=== PATIENT | female | born 1980 | race Two or more races ===

== ENCOUNTER 2018-07-12 14:37 | Outpatient (CLI) | payer MEDICAID ==
[2014-11-01 06:42] VITALS: BMI 37.4
[~2018-07-12 14:37] MED LIST: GLUCOPHAGE1000 MG PO; GLUCOPHAGE850 MG PO; IBUPROFEN600 MG PO; PERCOCET 10/3251 TA1 PO
[2018-07-13] MEDS ORDERED: HUMULIN R100 U/ML SQ (09:08)
[2018-07-13] MEDS ORDERED: HUMULIN N100 U/ML SC ×2 (09:08→09:10)
[2018-07-13] MEDS ORDERED: HUMULIN R100 U/ML SC ×2 (09:09)
[2018-07-15 13:30] LABS: PROTEIN - URINE 0.2 mg/dL (0.0-11.9)
== END 2018-07-13 09:40 | disposition home or self-care (01) ==
LOC: D.LDO 14:37 → D.LD 17:03 → D.LDO 07-13 09:40
PROVIDERS: ATTEND Obstetrics & Gynecology
DX: O24.112 Pre-existing type 2 diabetes mellitus, in pregnancy, second trimester (principal); E11.9 Type 2 diabetes mellitus without complications; Z3A.18 18 weeks gestation of pregnancy; O09.42 Supervision of pregnancy with grand multiparity, second trimester

== ENCOUNTER → 2018-08-02 13:15 | Outpatient (CLI) | payer MEDICAID ==
[2014-11-01 06:42] VITALS: BMI 37.4
[~2018-08-02 13:15] MED LIST changes: +HUMULIN N100 U/ML SC; +HUMULIN R100 U/ML SC; +HUMULIN R100 U/ML SQ
== END | disposition home or self-care (01) ==
LOC: D.US 12:45
PROVIDERS: ATTEND Obstetrics & Gynecology
DX: O24.919 Unspecified diabetes mellitus in pregnancy, unspecified trimester (principal); Z3A.00 Weeks of gestation of pregnancy not specified

== ENCOUNTER → 2018-10-04 09:45 | Outpatient (CLI) | payer MEDICAID ==
[2014-11-01 06:42] VITALS: BMI 37.4
== END | disposition home or self-care (01) ==
LOC: D.LDO 09:45
PROVIDERS: ATTEND Obstetrics & Gynecology
DX: O24.913 Unspecified diabetes mellitus in pregnancy, third trimester (principal); O09.529 Supervision of elderly multigravida, unspecified trimester; Z3A.30 30 weeks gestation of pregnancy

== ENCOUNTER → 2018-10-07 16:02 | Outpatient (CLI) | payer MEDICAID ==
[2014-11-01 06:42] VITALS: BMI 37.4
== END | disposition home or self-care (01) ==
LOC: D.LDO 16:02
PROVIDERS: ATTEND Obstetrics & Gynecology
DX: O24.913 Unspecified diabetes mellitus in pregnancy, third trimester (principal); Z3A.30 30 weeks gestation of pregnancy; Z79.4 Long term (current) use of insulin

== ENCOUNTER → 2018-10-11 13:10 | Outpatient (CLI) | payer MEDICAID ==
[2014-11-01 06:42] VITALS: BMI 37.4
[~2018-10-11 13:10] MED LIST changes: +CALCIUM 250+D T1 TAB PO; +FERROUS SULFAT325 MG PO; +HYDROCODON-ACE1 EA10 PO
== END | disposition home or self-care (01) ==
LOC: D.LDO 13:10
PROVIDERS: ATTEND Obstetrics & Gynecology
DX: O24.913 Unspecified diabetes mellitus in pregnancy, third trimester (principal); Z3A.31 31 weeks gestation of pregnancy; Z79.4 Long term (current) use of insulin

== ENCOUNTER → 2018-10-14 12:50 | Outpatient (CLI) | payer MEDICAID ==
[2014-11-01 06:42] VITALS: BMI 37.4
[~2018-10-14 12:50] MED LIST changes: -CALCIUM 250+D T1 TAB PO; -FERROUS SULFAT325 MG PO; -HYDROCODON-ACE1 EA10 PO
== END | disposition home or self-care (01) ==
LOC: D.LDO 12:50
PROVIDERS: ATTEND Obstetrics & Gynecology
DX: O24.913 Unspecified diabetes mellitus in pregnancy, third trimester (principal); Z3A.31 31 weeks gestation of pregnancy

== ENCOUNTER → 2018-10-19 18:13 | Outpatient (CLI) | payer MEDICAID ==
[2014-11-01 06:42] VITALS: BMI 37.4
== END | disposition home or self-care (01) ==
LOC: D.LDO 18:13
PROVIDERS: ATTEND Obstetrics & Gynecology
DX: O24.913 Unspecified diabetes mellitus in pregnancy, third trimester (principal); Z3A.32 32 weeks gestation of pregnancy

== ENCOUNTER → 2018-10-22 19:09 | Outpatient (CLI) | payer MEDICAID ==
[2014-11-01 06:42] VITALS: BMI 37.4
[~2018-10-22 19:09] MED LIST changes: +CALCIUM 250+D T1 TAB PO; +FERROUS SULFAT325 MG PO; +HYDROCODON-ACE1 EA10 PO
== END | disposition home or self-care (01) ==
LOC: D.LDO 19:09
PROVIDERS: ATTEND Obstetrics & Gynecology
DX: O13.3 Gestational [pregnancy-induced] hypertension without significant proteinuria, third trimester (principal); Z3A.32 32 weeks gestation of pregnancy

== ENCOUNTER → 2018-10-25 16:18 | Outpatient (CLI) | payer MEDICAID ==
[2014-11-01 06:42] VITALS: BMI 37.4
[~2018-10-25 16:18] MED LIST changes: -CALCIUM 250+D T1 TAB PO; -FERROUS SULFAT325 MG PO; -HYDROCODON-ACE1 EA10 PO
== END | disposition home or self-care (01) ==
LOC: D.LDO 16:18
PROVIDERS: ATTEND Obstetrics & Gynecology
DX: O24.913 Unspecified diabetes mellitus in pregnancy, third trimester (principal); Z3A.33 33 weeks gestation of pregnancy

== ENCOUNTER → 2018-10-28 13:01 | Outpatient (CLI) | payer MEDICAID ==
[2014-11-01 06:42] VITALS: BMI 37.4
== END | disposition home or self-care (01) ==
LOC: D.LDO 13:01
PROVIDERS: ATTEND Obstetrics & Gynecology
DX: O13.3 Gestational [pregnancy-induced] hypertension without significant proteinuria, third trimester (principal); Z3A.33 33 weeks gestation of pregnancy

== ENCOUNTER → 2018-11-01 15:54 | Outpatient (CLI) | payer MEDICAID ==
[2014-11-01 06:42] VITALS: BMI 37.4
== END | disposition home or self-care (01) ==
LOC: D.LDO 15:54
PROVIDERS: ATTEND Obstetrics & Gynecology
DX: O13.3 Gestational [pregnancy-induced] hypertension without significant proteinuria, third trimester (principal); Z3A.34 34 weeks gestation of pregnancy

== ENCOUNTER → 2018-11-04 13:46 | Outpatient (CLI) | payer MEDICAID ==
[2014-11-01 06:42] VITALS: BMI 37.4
== END | disposition home or self-care (01) ==
LOC: D.LDO 13:46
PROVIDERS: ATTEND Obstetrics & Gynecology
DX: O24.913 Unspecified diabetes mellitus in pregnancy, third trimester (principal); Z3A.34 34 weeks gestation of pregnancy

== ENCOUNTER → 2018-11-08 18:29 | Outpatient (CLI) | payer MEDICAID ==
[2014-11-01 06:42] VITALS: BMI 37.4
== END | disposition home or self-care (01) ==
LOC: D.LDO 18:29
PROVIDERS: ATTEND Obstetrics & Gynecology
DX: O24.913 Unspecified diabetes mellitus in pregnancy, third trimester (principal); Z3A.35 35 weeks gestation of pregnancy

== ENCOUNTER → 2018-11-11 20:49 | Outpatient (CLI) | payer MEDICAID ==
[2014-11-01 06:42] VITALS: BMI 37.4
== END | disposition home or self-care (01) ==
LOC: D.LDO 20:49
PROVIDERS: ATTEND Obstetrics & Gynecology
DX: O26.899 Other specified pregnancy related conditions, unspecified trimester (principal); Z3A.00 Weeks of gestation of pregnancy not specified

== ENCOUNTER → 2018-11-16 19:44 | Outpatient (CLI) | payer MEDICAID ==
[2014-11-01 06:42] VITALS: BMI 37.4
== END | disposition home or self-care (01) ==
LOC: D.LDO 19:44
PROVIDERS: ATTEND Obstetrics & Gynecology
DX: O24.913 Unspecified diabetes mellitus in pregnancy, third trimester (principal); Z3A.36 36 weeks gestation of pregnancy

== ENCOUNTER → 2018-11-19 14:43 | Outpatient (CLI) | payer MEDICAID ==
[2014-11-01 06:42] VITALS: BMI 37.4
== END | disposition home or self-care (01) ==
LOC: D.LDO 14:43
PROVIDERS: ATTEND Obstetrics & Gynecology
DX: O24.913 Unspecified diabetes mellitus in pregnancy, third trimester (principal); Z3A.35 35 weeks gestation of pregnancy

== ENCOUNTER → 2018-11-23 16:10 | Outpatient (CLI) | payer MEDICAID ==
[2014-11-01 06:42] VITALS: BMI 37.4
[~2018-11-23 16:10] MED LIST changes: +CALCIUM 250+D T1 TAB PO; +FERROUS SULFAT325 MG PO; +HYDROCODON-ACE1 EA10 PO
== END | disposition home or self-care (01) ==
LOC: D.LDO 16:10
PROVIDERS: ATTEND Obstetrics & Gynecology
DX: O24.913 Unspecified diabetes mellitus in pregnancy, third trimester (principal); Z3A.37 37 weeks gestation of pregnancy

== ENCOUNTER → 2018-11-26 12:40 | Outpatient (CLI) | payer MEDICAID ==
[2014-11-01 06:42] VITALS: BMI 37.4
== END | disposition home or self-care (01) ==
LOC: D.LDO 12:40
PROVIDERS: ATTEND Obstetrics & Gynecology
DX: O24.419 Gestational diabetes mellitus in pregnancy, unspecified control (principal)

== ENCOUNTER → 2018-11-30 16:39 | Outpatient (CLI) | payer MEDICAID ==
[2014-11-01 06:42] VITALS: BMI 37.4
== END | disposition home or self-care (01) ==
LOC: D.LDO 16:39
PROVIDERS: ATTEND Obstetrics & Gynecology
DX: O24.419 Gestational diabetes mellitus in pregnancy, unspecified control (principal)

== ENCOUNTER → 2018-12-03 14:16 | Outpatient (CLI) | payer MEDICAID ==
[2014-11-01 06:42] VITALS: BMI 37.4
== END | disposition home or self-care (01) ==
LOC: D.LDO 14:16
PROVIDERS: ATTEND Obstetrics & Gynecology
DX: O24.913 Unspecified diabetes mellitus in pregnancy, third trimester (principal); Z3A.38 38 weeks gestation of pregnancy

== ENCOUNTER 2018-12-06 10:03 | Inpatient (IN) | payer MEDICAID ==
[2018-12-06] VITALS (10 sets, daily range): BP systolic 133–165; BP diastolic 68–80; Ht 157.5 cm; Wt 101.2 kg
[~2018-12-06] VITALS: Ht 157.5 cm; Wt 101.2 kg
[~2018-12-06 10:03] MED LIST changes: -CALCIUM 250+D T1 TAB PO; -FERROUS SULFAT325 MG PO; -HYDROCODON-ACE1 EA10 PO
[2018-12-06] MEDS ORDERED: CALCIUM 250+D T1 TAB PO (10:54)
[2018-12-06] MEDS ORDERED: FERROUS SULFAT325 MG PO (10:54)
[2018-12-06 12:06] LABS: HEMATOCRIT 29.6 % (36.0-48.0); HEMOGLOBIN 9.8 g/dL (12-16); MCH 26.1 pg (26.0-34.0); MCHC 33.1 g/dL (31.0-37.0); MCV 78.7 fL (80.0-100.0); MEAN PLATELET VOLUME 11.8 fL (7.4-10.4); RBC 3.76 10x6/uL (4.00-5.40); RDW 14.4 % (11.5-14.5); WBC 7.2 10x3/uL (4.8-10.8)
[2018-12-06 14:33] LABS: APPEARANCE CLEAR (CLEAR); BILIRUBIN NEGATIVE (NEGATIVE); COLOR YELLOW (YELLOW); GLUCOSE NEGATIVE (NEGATIVE); KETONE NEGATIVE (NEGATIVE); NITRITE NEGATIVE (NEGATIVE); PROTEIN NEGATIVE (NEGATIVE); UROBILINOGEN NORMAL (NORMAL)
--- NOTE | 2018-12-06 16:14 | NUR ---
RECEIVED PT VIA BED FROM RR POST REPEAT C/S WITH BTL, PT TO ROOM 1276, VS INITIATED, SALINE LOCK IN RIGHT WRIST INTACT WITH NO REDNESS OR EDEMA, IV IN LEFT UPPER FA INTACT WITH NO REDNESS OR EDEMA INFUSING VIA PUMP NS WITH PITOCIN AT 125 ML/HR, FF, ML, U/1, LITE BLEEDING NOTED WITH NO CLOTS, SHANIA CARE DONE WITH WET WARM WASH CLOTH, SHANIA PAD CHANGED, BIKINI INC WITH SMALL DRESSING CDI WITH NO DRAIANGE NOTED, ICE PACK TO ABD, MERCADO CATH INTACT DRAINING DARK YELLOW URINE, SCD'S CONNECT TO PUMP AND WORKING PROPERLY, PT INST ON AND SERVED APPLE JUICE DUE TO BS OF 62, PT VERBALIZES UNDERSTANDING, INFORMED PT THAT I WILL START HER GAUNTLET PAIRER FOR PAIN MANAGEMENT, PT VERBALIZES UNDERSTANDING, BED IN LOW POSITION, SIDE RAILS X 2, CALL LIGHT IN REACH
--- NOTE | 2018-12-06 16:31 | NUR ---
DILAUDID BINMAN INITIATED, PT INST ON AND VERBALIZES UNDERSTANDING OF BINMAN, PT PUSHES BUTTON AT THIS TIME FOR PAIN OF 7/10
--- NOTE | 2018-12-06 16:50 | NUR ---
FF, ML, U/1, LITE BLEEDING NOTED WITH NO CLOTS
--- NOTE | 2018-12-06 17:30 | NUR ---
PT RESTING WITH EYES CLOSED, AROUSES TO SOFT VERBAL STIMULATION, VS CONTINUE, OBTAINED FSBS, FF, ML, U/1, LITE BLEEDING NOTED WITH NO CLOTS, SHANIA CARE DONE WITH WET WARM WASH CLOTHS, BLUE CHUX AND SHANIA PAD CHANGED, ICE PACK TO ABD, MERCADO CATH EMPTIED, SCD'S CONTINUE ON AND WORKING PROPERLY, PT RATES INC PAIN 5/10, DENIES NEEDS, DINNER TRAY REMOVED
--- NOTE | 2018-12-06 18:38 | NUR ---
PT HOLDING INFANT, RATES INC PAIN 10/11, DENIES NEEDS, FOB AT BEDSIDE
--- NOTE | 2018-12-06 19:00 | NUR ---
SHIFT REPORT TO DINAH WEN RN AND RAFAEL VEGA RN
--- NOTE | 2018-12-06 19:30 | NUR ---
CHRISTINA LOPEZ RN SPOKE TO DR WAGNER REGARDING BP, CHRISTINA LOPEZ RN REPORTS TO ME TO GO AHEAD AND ADM TORADOL, RETAKE BP IN 1 HOUR, AND IF BP STILL ELEVATED, DRAW [facility] LABS AND NOTIFY HIM
--- NOTE | 2018-12-06 19:43 | NUR ---
VS OBTAINED, ADM TORADOL SIVP PER MD ORDERS, SEE EMAR, LAB IN ROOM FOR BLOOD DRAW, SHANITA MICHEL, RN IN ROOM WITH , PT DENIES NEEDS AT THIS TIME
[2018-12-06 20:04] LABS: BASOPHILS 0.2 % (0-2); EOSINOPHILS 0.3 % (0-7); HEMOGLOBIN 11.6 g/dL (12-16); IMMATURE GRANULOCYTES 0.3 % (0-5); LYMPHOCYTES 15.8 % (15-50); MCH 26.2 pg (26.0-34.0); MCHC 33.1 g/dL (31.0-37.0); MCV 79.2 fL (80.0-100.0); MEAN PLATELET VOLUME 12.3 fL (7.4-10.4); MONOCYTES 6.4 % (2-11); PLATELET COUNT 155 10x3/uL (130-400); RBC 4.42 10x6/uL (4.00-5.40); RDW 14.3 % (11.5-14.5)
[2018-12-06 20:05] LABS: WBC 11.5 10x3/uL (4.8-10.8)
--- NOTE | 2018-12-06 20:16 | NUR ---
FSBS OBTAINED, PT INST TO DRINK APPLE JUICE, APPLE JUICE SERVED, PT DENIES FURTHER NEEDS, FAMILY MEMBER HOLDING INFANT, FOB AND FAMILY AT BEDSIDE
--- NOTE | 2018-12-06 20:39 | NUR ---
REPORT TO BALBIR SHEIKH RN
--- NOTE | 2018-12-06 20:40 | NUR ---
BEDSIDE REPORT PROVIDED, NO IMMEDIATE NEEDS VOICED AT THIS TIME, PT SMILING WITH MULTIPLE FAMILY/FRIENDS IN ROOM, DENIES PAIN. CALL LIGHT AND DESKTOP PUBLISHING SPECIALIST BUTTON WITHIN EASY REACH. WILL MONITOR.
--- NOTE | 2018-12-06 21:15 | NUR ---
SHIFT ASSESSMENT COMPLETED, VSS, PT SMILING AND RESPONDS APPROPRIATELY WITH USE OF FAMILY BARGE PILOT. DENIES MERRILL, DIPLOPIA, VISUAL DISTURBANCES, EPIGASTRIC PAIN, ABD SOFT AND APPROPRIATELY TENDER TO LIGHT PALPATION, FUNDUS FIRM AT U/2 AND MIDLINE, LOCHIA RUBRA LIGHT AMOUNT NO CLOTS TO PERIPAD, MERCADO CATHETER TO GRAVITY WITH 250ML CLEAR YELLOW URINE EMPTIED FROM COLLECTION CHAMBER, VELASQUEZ FREELY, NEGATIVE BISI'S SIGN BILATERALLY, SCDS ON AND FUNCTIONING TO B LE. PIV SITE TO LEFT FA AND SALINE LOCK TO RIGHT HAND WITHOUT S/SX INFECTION OR INFILTRATION. LOW TRANSVERSE INCISION WITH BIOOCCLUSIVE DRESSING OVERLAY AND NO NEW DRAINAGE NOTED AT THIS TIME. APPLE JUICE AND JELLO PROVIDED PROVIDED PER REQUEST, CALL LIGHT AND SENIOR CONTROLS ENGINEER BUTTON WITHIN EASY REACH, ICE PACK OVERLAY ALSO REFRESHED. BP RECHECKED AND LESS THAN 140/90. FAMILY AND FRIENDS PRESENT IN ROOM. EXPLAINED PLAN OF CARE FOR THIS PM AND THIS WAS RELAYED VIA INTERPRETOR, NO QUESTIONS POSED. WILL MONITOR.
--- NOTE | 2018-12-06 22:15 | NUR ---
ROUNDS COMPLETED, NAD NOTED, PT SMILING, ALERT AND CONVERSANT WITH FAMILY MEMBERS ALSO PRESENT IN ROOM. TOLERATING PO WELL. DENIES NEEDS OR CONCERNS. WILL CONTINUE TO MONITOR.
--- NOTE | 2018-12-06 23:19 | NUR ---
PT FSBS 91, URINE OUTPUT 60 ML LAST TWO HOURS, VITAL SIGNS NOTED 143/80 AT THIS TIME. REPORTED TO FILM SOUND ENGINEER, Jostin WEN RN WHO IS CALLING DR WAGNER FOR ANOTHER PATIENT AND WILL REPORT FINDINGS FOR THIS PT. PERICARE PROVIDED, FUNDUS FIRM AT U/2 AND MIDLINE, LOCHIA RUBRA LIGHT AMOUNT, ICE PACK OVERLAY PROVIDED TO LOW TRANSVERSE INCISION, PIV INFUSING AT 125ML/HR OF NS WITH 20 UNITS PITOCIN, PT USING MANUFACTURING DESIGN ENGINEER DILAUDID WITHOUT DIFFICULTY, STATES NO PAIN NOW. ENCOURAGED PO FLUIDS AND RATIONALE EXPLAINED WITH USE OF CORRECTIONAL MEDICINE PHYSICIAN. CALL LIGHT IN EASY REACH OF PT. PT STATES UNDERSTANDING OF ALL INSTRUCTIONS PROVIDED. DEMONSTRATES USE OF INCENTIVE SPIROMETER UP TO 1500ML INSPIRED VOLUME. CONTINUE TO MONITOR.
--- NOTE | 2018-12-06 23:35 | NUR ---
REPORT OF URINE OUTPUT OF 30 MLS AND B/P 143/[address] WAGNER. ORDERS REC'D TO CONTINUE TO MONITOR URINE OUTPUT AND REPORT LESS THAN 30 MLS/HR OF URINE OUTPUT. Kobi SHEIKH RN NOTIFIED.
[2018-12-07] VITALS (7 sets, daily range): BP systolic 126–163; BP diastolic 63–81
--- NOTE | 2018-12-07 00:22 | NUR ---
PAGED DR WAGNER FOR REPORT OF URINE OUTPUT LESS THAN 30 ML THIS PAST HOUR. URINE IS CONCENTRATED AND DARK YELLOW. PT DENIES MERRILL, VISUAL DISTURBANCES, EPIGASTRIC PAIN. AWAITING CALL BACK. NOTIFIED Jostin WEN RN OF PT STATUS.
--- NOTE | 2018-12-07 00:32 | NUR ---
NS HUNG AND INFUSING AT BOLUS RATE FOR TOTAL VOLUME OF 500ML PER MD ORDER VIA IVAC PUMP ADMINISTRATION FOR DECREASED URINE OUTPUT. PT RESTING WITH EYES CLOSED, RESP EVEN AND UNLABORED, CONTINUE TO MONITOR.
--- NOTE | 2018-12-07 00:51 | NUR ---
REPORT GIVEN TO Jostin VEGA RN AND Jostin WEN RN.
--- NOTE | 2018-12-07 01:15 | NUR ---
URINE OUTPUT AT THIS TIME 200 ML OF DARK JOSE URINE. Brooke VEGA RN
--- NOTE | 2018-12-07 02:13 | NUR ---
DR WAGNER PAGED AT THIS TIME WITH IMMEDIATE RETURN CALL REC'D. INFORMED OF ELEVATED BP WITH REPEAT BP AT 0200 WNL. INFORMED THAT PT WAS GIVEN A BOLUS FROM WORK STATION SUPPORT SPECIALIST DUE TO PAIN LEVEL OF 7. NO NEW ORDERS NOTED AT THIS TIME. Brooke VEGA RN
--- NOTE | 2018-12-07 02:19 | NUR ---
PT MEDICATED WITH TORADOL FOR PAIN OF 5. PT STATES THAT SHE HAS PASSED A LITTLE BIT OF GAS. WHEN ASKED IF THAT HELPED WITH PAIN PT STATES THAT IT DID HELP SOME. WILL CONTINUE TO MONITOR. Brooke VEGA RN
--- NOTE | 2018-12-07 02:30 | NUR ---
PERICARE PROVIDED AT THIS TIME. SMALL LICHIA NOTED AT THIS TIME. FUNDUS U/2. MERCADO WITH 250 ML OF CLEAR YELLOW URINE NOTED. Brooke VEGA RN
--- NOTE | 2018-12-07 04:15 | NUR ---
BLOOD SUGAR DONE AT THIST PASCUAL. RESULT OF 83 NOTED AT THIS TIME. NO DISTRESS NOTED. Brooke VEGA RN
[2018-12-07 06:09] LABS: RAPID PLASMA REAGIN Non Reactive (Non Reactive)
--- NOTE | 2018-12-07 06:30 | NUR ---
PERICARE PROVIDED AT THIS TIME. SMALL LOCHIA NOTED AT THIS TIME. ICE PACK PLACED TO [facility]. Brooke VEGA RN
[2018-12-07 06:52] LABS: BASOPHILS 0.1 % (0-2); EOSINOPHILS 0.4 % (0-7); HEMATOCRIT 31.2 % (36.0-48.0); HEMOGLOBIN 10.4 g/dL (12-16); IMMATURE GRANULOCYTES 0.3 % (0-5); LYMPHOCYTES 16.4 % (15-50); MCH 26.1 pg (26.0-34.0); MCHC 33.3 g/dL (31.0-37.0); MCV 78.4 fL (80.0-100.0); MEAN PLATELET VOLUME 11.5 fL (7.4-10.4); MONOCYTES 9.1 % (2-11); NEUTROPHILS 73.7 % (40-80); PLATELET COUNT 147 10x3/uL (130-400); RBC 3.98 10x6/uL (4.00-5.40); RDW 14.5 % (11.5-14.5); WBC 9.3 10x3/uL (4.8-10.8)
--- NOTE | 2018-12-07 07:45 | NUR ---
DR WAGNER HERE TO SEE PT- NEW ORDERS RECEIVED.
--- NOTE | 2018-12-07 08:27 | NUR ---
ASSESSMENT DONE- PT DRINKING LIQ DIET. ABD SOFT- BOWEL SOUNDS PRESENT. ABD INCISION WITH FABIANO- INTACT APPEARANCE WNL. SCANT LOCHIA NOTED ON PAD. SCD'S ON. PT USING HEADSTART TEACHER NEEDED. VISITOR AT BEDSIDE.
--- NOTE | 2018-12-07 09:01 | NUR ---
BABY AT BREAST. PT REQUESTING NIPPLE SHIELD.
--- NOTE | 2018-12-07 09:33 | NUR ---
RINGS CALL LIGHT- STATES SHE IS READY FOR CATH OUT AND TO START ORAL MEDS. RATES PAIN 6 ON SCALE OF 0-10. OARL PAIN MEDS STARTED.
--- NOTE | 2018-12-07 09:46 | NUR ---
IV CHANGED TO SALINE LOCK. MERCADO CATH REMOVED POST BULB DEFLATED - 1400CC IN BAG -CLEAY PALE YELLOW URINE.
--- NOTE | 2018-12-07 09:52 | NUR ---
CATHIEK BS- 94- ONE HOUR AFTER FINISHED CLEAR LIQ BREAKFAST.
--- NOTE | 2018-12-07 10:15 | NUR ---
REPORT OF BS OF [address] WAGNER. NO NEW ORDERS.
--- NOTE | 2018-12-07 11:05 | NUR ---
ambulatory to bathroom- voided 700cc clear urine. pt co sign pain while ambulating- co pain lt side. incision appearance wnl on return to bed. tilted to rt side.
--- NOTE | 2018-12-07 11:56 | NUR ---
ASLEEP AT THIS TIME- RESP REG AND EVEN.
--- NOTE | 2018-12-07 12:25 | NUR ---
reg diet served.
--- NOTE | 2018-12-07 12:42 | NUR ---
sitting up in bed- talking on phone. eating reg diet. states is doing good.
--- NOTE | 2018-12-07 13:29 | NUR ---
up to bathroom- tolerated better than first time. voided 900+cc. pt states wants to shower.
--- NOTE | 2018-12-07 13:50 | NUR ---
tolerated shower well- instructed on care of incision. pt states understanding.
--- NOTE | 2018-12-07 14:06 | NUR ---
requesting pain medication after shower- rates pain a 6 on scale of 0-10. co pain at incision area. med given.
--- NOTE | 2018-12-07 14:30 | NUR ---
RESULTS OF BS REPORT TO DR WAGNER- CHRISTINA RECEIVED THAT IF BS GOOD WITH NEXT CHECK WILL PROBABLY STOP THEM.
--- NOTE | 2018-12-07 15:00 | NUR ---
asleep- resp reg and even.
--- NOTE | 2018-12-07 16:35 | NUR ---
awake and requests pain medication. med given. pt states needs to void.
--- NOTE | 2018-12-07 16:45 | NUR ---
pedi in room talking with pt.
--- NOTE | 2018-12-07 16:59 | NUR ---
ambulates to bathroom. voids 1000cc. co pain when walking lt lower abd. abd soft- incision appearance wnl. pt back to bed.
--- NOTE | 2018-12-07 17:06 | NUR ---
states is passing gas. bowel sounds present. eating reg diet at this time.
--- NOTE | 2018-12-07 17:48 | NUR ---
abd binder placed to help when pt is up and about. pain med given. eating reg diet.
--- NOTE | 2018-12-07 18:28 | NUR ---
rings call light and states that she is finished with dinner. pt talking with visitors. states that pain "is good" better. rates pain a 5 on scale of 0-10.
--- NOTE | 2018-12-07 19:36 | NUR ---
AMBULATORY IN ROOM WITH ASSISTANCE OF FAMILY MEMBERS. REPORTS THAT SHE HAD BEEN TO BATHROOM TO VOID. 900 MLS CLEAR LIGHT YELLOW URINE NOTED IN HAT. VSS. FUNDUS FIRM, MIDLINE AND U2 WITH SCANT RUBRA LOCHIA, NO CLOTS NOTED. SHIFT ASSESSMENT COMPLETED PER FLOWSHEET. PAIN FOLLOWING ACTIVITY 6/10, 3/10 AT REST. REPORTS THAT SHE IS PASSING FLATUS. 1+ BLE EDEMA. FSBS 136, REPORTS THAT SHE HAD APPLE JUICE AND TURKEY SANDWICH AND CHIPS ON DINNER TRAY, WILL NOTIFY DR. LANE. SCD'S ON BLE. POC DISCUSSED WITH PT AND SPOUSE, BOTH VERBALIZE UNDERSTANDING AND DENY QUESTIONS. BED IN LOW POSITION WITH UPPER SIDE RAILS RAISED X2. CALL LIGHT AND PHONE WITHIN REACH. WILL CONTINUE TO MONITOR.
--- NOTE | 2018-12-07 19:40 | NUR ---
DR. LANE PAGED TO REPORT FSBS.
--- NOTE | 2018-12-07 19:56 | NUR ---
CALL BACK REC'D FROM DR. LANE. REPORTED 1 HOUR POST PRANIAL FSBS OF 136. ORDERS REC'D TO CHECK FASTING FSBS IN A.M.
--- NOTE | 2018-12-07 20:47 | NUR ---
BOTTLE FEEDING AT THIS TIME. PAIN 3/10 WHILE AT REST, DENIES NEED FOR INTERVENTION AT THIS TIME. DENIES NEEDS. SCD'S ON BLE. BED IN LOW POSITION WITH UPPER SIDE RAILS RAISED X2. CALL LIGHT AND PHONE WITHIN REACH. WILL CONTINUE TO MONITOR.
--- NOTE | 2018-12-07 21:55 | NUR ---
UP AMBULATORY IN ROOM, 900 MLS CLEAR LIGHT YELLOW URINE EMPTIED FROM HAT. SCANT RUBRA LOCHIA NOTED TO PERIPAD. C/O PAIN 6/10, ABD SORENESS AND INCISIONAL BURNING AND STINGING. NORCO GIVEN PER ORDER. ENCOURAGED TO AMBULATE IN [place], REQUESTS TO SIT ON EDGE OF BED PRIOR TO AMBULATING FOR 10-20 MINUTES. WATER PROVIDED PER PT REQUEST. DENIES ADDITIONAL NEEDS. BED IN LOW POSITION WITH UPPER SIDE RAILS RAISED X2. CALL LIGHT AND PHONE WITHIN REACH. WILL CONTINUE TO MONITOR.
--- NOTE | 2018-12-07 22:15 | NUR ---
AMBULATORY ON UNIT WITH STANDBY ASSIST OF SPOUSE AND RN, STEADY GAIT NOTED. AMBULATED FROM ROOM TO OR DOUBLE DOOR BACK TO ROOM. C/O INCISIONAL BURNING AND STINGING WHILE AMBULATING 5-6/10. BACK TO ROOM AT 2226, RN ASSISTED TO BED. SCD'S ON BLE. ESTHER CRACKERS AND PEANUT BUTTER PROVIDED A SNACK. DISCUSSED WITH PT NEED FOR FASTING FSBS IN A.M, VERBALIZES UNDERSTANDING. DENIES ADDITIONAL NEEDS AT THIS TIME. BED IN LOW POSITION WITH UPPER SIDE RAILS RAISED X2. CALL LIGHT AND PHONE WITHIN REACH. WILL CONTINUE TO MONITOR.
--- NOTE | 2018-12-07 22:45 | NUR ---
PAIN REASSESSMENT COMPLETED WITH PT AT REST. PAIN 2-3/10, DENIES NEED FOR INTERVENTION AT THIS TIME. RESTING IN OPEN CRIB AT BEDSIDE. DENIES NEEDS AT THIS TIME. BED IN LOW POSITION WITH UPPER SIDE RAILS RAISED X2. CALL LIGHT AND PHONE WITHIN REACH. WILL CONTINUE TO MONITOR.
--- NOTE | 2018-12-07 23:57 | NUR ---
VSS. C/O ABD SORENESS AND CRAMPING AND INCISIONAL BURNING AND STINGING 10/11, MOTRIN GIVEN PER ORDER AND REQUEST. UP TO VOID WHILE RN IN ROOM. FUNDUS REMAINS FIRM, MIDLINE AND U2 WITH SCANT RUBRA LOCHIA, NO CLOTS NOTED. SCD'S BACK ON. DENIES ADDITIONAL NEEDS AT THIS TIME. BED IN LOW POSITION WITH UPPER SIDE RAILS RAISED X2. CALL LIGHT AND PHONE WITHIN REACH. WILL CONTINUE TO MONITOR AND ASSIST PRN.
--- NOTE | 2018-12-08 00:32 | NUR ---
AMBULATORY ON UNIT WITH SPOUSE, STEADY GAIT NOTED. DENIES NEEDS AT THIS TIME. WILL CONTINUE TO MONITOR.
--- NOTE | 2018-12-08 00:51 | NUR ---
PAIN REASSESSMENT COMPLETED. -09/10, REQUESTS NORCO WHEN SHE CAN HAVE IT AGAIN. SCD'S ON BLE, DENIES NEEDS AT THIS TIME. SPOUSE REMAINS AT BEDSIDE, SUPPORTIVE AND ATTENTIVE TO PT AND NEEDS. BED IN LOW POSITION WITH UPPER SIDE RAILS RAISED X2. CALL LIGHT AND PHONE WITHIN REACH. WILL CONTINUE TO MONITOR.
--- NOTE | 2018-12-08 01:29 | NUR ---
INFANT BACK TO ROOM FOR BF PER MOM'S REQUEST. C/O INCISIONAL BURNING AND STINGING AND ABD CRAMPING 10/11, NORCO GIVEN PER ORDER AND PT REQUEST. LT UPPER ARM PIV FLUSHED WITHOUT DIFFICULTY, NO S/S OF INFILTRATION NOTED. UNABLE TO FLUSH RIGHT WRIST PIV, PIV REMOVED, TIP INTACT, BANDAID APPLIED OVER SITE. SCD'S ON BLE. BED IN LOW POSITION WITH UPPER SIDE RAILS RAISED X2. CALL LIGHT AND PHONE WITHIN REACH. WILL CONTINUE TO MONITOR AND ASSIST PRN.
--- NOTE | 2018-12-08 02:17 | NUR ---
JUST COMPLETING BF. PAIN REASSESSMENT DONE, 08/11. STATES THAT PAIN "IS BETTER" AFTER NORCO. DENIES ADDITIONAL NEEDS AT THIS TIME. SPOUSE REMAINS AT BEDSIDE, SUPPORTIVE AND ATTENTIVE TO PT AND NEEDS. SCD'S ON BLE. WILL CONTINUE TO MONITOR AND ASSIST PRN.
--- NOTE | 2018-12-08 04:03 | NUR ---
RESTING QUIETLY WITH EYES CLOSED IN SEMI-FOWLERS POSITION. RESP REGULAR AND UNLABORED, NO S/S OF DISTRESS NOTED. INFANT RESTING QUIETLY IN OPEN CRIB. FOB RESTING ON COUCH AT BEDSIDE. SCD'S ON BLE. BED IN LOW POSITION WITH UPPER SIDE RAILS RAISED X2. CALL LIGHT AND PHONE WITHIN REACH. WILL CONTINUE TO MONITOR AND ASSIST PRN.
[2018-12-08 05:03] VITALS: BP 138/76
--- NOTE | 2018-12-08 05:03 | NUR ---
VSS. C/O PAIN 10/11, NORCO GIVEN PER ORDER AND PT REQUEST. FUNDUS REMAINS FIRM, MIDLINE AND U2 WITH SCANT RUBRA LOCHIA. WATER PROVIDED. SCD'S REMAIN ON BLE. SPOUSE REMAINS AT BEDSIDE, SUPPORTIVE AND ATTENTIVE TO PT AND NEEDS. BED IN LOW POSITION WITH UPPER SIDE RAILS RAISED X2. CALL LIGHT AND PHONE WITH REACH.
--- NOTE | 2018-12-08 06:57 | NUR ---
PAIN REASSESSMENT COMPLETED. 08/11. FSBS 75, RESULT REPORTED TO DR. LANE. PT DENIES NEEDS. HOLDING INFANT IN ARMS. SCD'S ON BLE. SPOUSE RESTING ON COUCH AT BEDSIDE. BED IN LOW POSITION WITH UPPER SIDE RAILS RAISED X2. CALL LIGHT AND PHONE WITHIN REACH. WILL CONTINUE TO MONITOR AND ASSIST PRN.
--- NOTE | 2018-12-08 07:30 | NUR ---
DR WAGNER IN ROOM FOR ROUNDING, INFORMS PT SHE MAY GO HOME TODAY, DISCUSSING DISCHARGE TEACHING. ORDER RCVD TO D/C FSBS.
[2018-12-08 07:46] VITALS: BP 132/66
--- NOTE | 2018-12-08 07:46 | NUR ---
THIS RN TO ROOM FOR SHIFT ASSESSMENT. PT SITTING UP IN BED, TALKING WITH DR WAGNER ABOUT FSBS AT HOME. DR WAGNER EXITS ROOM. SHIFT ASSESSMENT DONE, VSS, SEE FLOWSHEET FOR DOC. PT C/O PAIN RATED 5/10, SHARP AND BURNING INSIDE AT INCISION. PT ADMIN PRN MOTRIN ORDERED, SEE EMAR FOR DOC. C/S INCISION IS C/D WITH FABIANO INTACT. FF, ML, U/2. SMALL RUBRA LOCHIA NOTED TO PERIPADS WITH NO CLOTS. 2+ GENERALIZED EDEMA NOTED TO LE BILAT. NEG HOMANS SIGN. PT INSTRUCTED ON S/S TO REPORT REGARDING LOCHIA AND ENCOURAGED TO EMPTY BLADDER FREQUENTLY. UNDERSTANDING VERBALIZED BY PT AND SIG OTHER. PT PROVIDED WITH FRESH ICE WATER. D/C TO HOME DISCUSSED, PT DENIES QUESTIONS. SRUx2, CL IN REACH.
--- NOTE | 2018-12-08 09:30 | NUR ---
DR WAGNER GIVES VERBAL ORDER TO DISCHARGE PT TO HOME WITH INSTRUCTIONS TO FOLLOW UP THURSDAY IN [facility] TO HAVE FABIANO REMOVED.
--- NOTE | 2018-12-08 10:10 | NUR ---
Sidney Dennis 12/08/18 S: Buckler And Lacer states patient says is going fine. It's getting better. Denies questions, concerns, or needing help with .She is giving both formula and . Has been giving more formula then but will breastfeed more at home. O: Patient standing up in room talking with family member. FOB sitting down holding infant. Patient speaks limited Maori. Family member in room to translate. Praised for and asked how can I help with ? Informed patient takes time, practice, and patience in the beginning. Explained normal feeding patterns for a breastfed . Explained feeding cues,supply and demand, benefits of skin to skin, positions,and how to very is latched correctly. Asked if any questions or concerns? Please ask for help as needed with help with . A: Patient providing infant both breastmilk and formula. P: Continue to support during hospital visit. Please ask for help as needed. Martha Singer, CLC
--- NOTE | 2018-12-08 10:30 | NUR ---
THIS RN TO ROOM FOR PT CHECK. PT RESTING IN BED, SUPINE, HOB 45DEGREES, SRUx2, CL IN REACH. RESP EVEN AND UNLABORED. PT LEFT UNDISTURBED. PT FAMILY MEMBER ON BEDSIDE COUCH.
--- NOTE | 2018-12-08 11:19 | NUR ---
PT FAMILY MEMBER TO DESK STATING THAT PT IS REQUESTING PAIN MEDICINE. THIS RN TO ROOM. PT RATING PAIN 6/10 AT INCISION AND INTERNAL, SHARP AND BURNING. PT ADMIN PRN NORCO ORDERED, SEE EMAR FOR DOC. PT ASKING ABOUT PAIN MEDS FOR AT HOME. PRESCRIPTION PROVIDED FOR FAMILY MEMBER TO DROP OFF AT PT'S PHARMACY. PT SIGNS THAT SHE RECIEVED PRESCRIPTION. INSTRUCTED THAT RN WILL ADMIN ALL MEDICATIONS WHILE PT IS INPATIENT SO WILL BE DOCUMENTED ON EMAR. UNDERSTANDING VERBALIZED.
--- NOTE | 2018-12-08 11:20 | NUR ---
PIV REMOVED NO LONGER INDICATED, PT IS DISCHARGING HOME. REMOVED WITHOUT INCIDENT, CATH TIP INTACT. PRESSURE HELD AND BANDAID APPLIED.
[2018-12-08 11:36] VITALS: BP 107/59
--- NOTE | 2018-12-08 12:40 | NUR ---
PT AMBULATING IN HALLS, DENIES NEEDS.
[2018-12-08] MEDS ORDERED: HYDROCODON-ACE1 EA10 PO (12:44)
[2018-12-08] MEDS ORDERED: IBUPROFEN600 MG PO (12:44)
--- NOTE | 2018-12-08 14:25 | NUR ---
PT GIVEN DISHARGE INSTRUCTIONS, PT AND SIG OTHER VERBALIZE UNDERSTANDING AND DENY QUESTIONS. PT SIGNS CHART COPIES OF INSTRUCTIONS, PT COPY PROVIDED. PT INSTRUCTED TO CALL [facility] RECRUITING INTERNSHIP LIGHT FOR ANY NEEDS. AWAITING NURSERY TO DO INFANT DISCHARGE TEACHING AND D/C TO HOME.
== END 2018-12-08 14:25 | disposition home or self-care (01) | DRG 785 ==
LOC: D.LD 10:03
PROVIDERS: ADMIT Obstetrics & Gynecology; ATTEND Obstetrics & Gynecology
PROC: 10D00Z1 Extraction of Products of Conception, Low, Open Approach (ICD-10-PCS; principal; 2018-12-06 12:00)
PROC: 0UB70ZZ Excision of Bilateral Fallopian Tubes, Open Approach (ICD-10-PCS; 2018-12-06 12:00)
DX: O24.429 Gestational diabetes mellitus in childbirth, unspecified control (principal); Z3A.39 39 weeks gestation of pregnancy; Z37.0 Single live birth; O34.83 Maternal care for other abnormalities of pelvic organs, third trimester; N81.6 Rectocele; O34.211 Maternal care for low transverse scar from previous cesarean delivery; Z30.2 Encounter for sterilization; Z30.09 Encounter for other general counseling and advice on contraception